=== PATIENT | female | born 2000 | race Hispanic/Latino ===

== ENCOUNTER 2022-04-16 21:27 | Emergency (ER) | payer OTHER ==
[~2022-04-16] VITALS: Ht 154.9 cm; Wt 86.2 kg
[2022-04-16] MEDS ORDERED: INSULIN REGULAR, HUMAN 100 UNIT/1 ML IV ONE (21:45)
[2022-04-16] MEDS ORDERED: SODIUM CHLORIDE 0.9% 1000ML 1,000 ML IV SCH (21:45)
[2022-04-16] MEDS ORDERED: SODIUM CHLORIDE 0.9% 1000ML 1,000 ML ONE (22:07)
[2022-04-16] MEDS ORDERED: INSULIN REGULAR, HUMAN 100 UNIT/1 ML ONE (22:07)
[2022-04-16 23:55] VITALS: BP 129/89
== END 2022-04-16 23:08 | disposition home or self-care (01) ==
LOC: EDBD 21:27 → FSED 21:42
DX: E11.65 Type 2 diabetes mellitus with hyperglycemia (principal); J45.909 Unspecified asthma, uncomplicated
CPT/HCPCS: 36415; 82948; 99283; J1817; J7030